=== PATIENT | female | born 1960 | race Caucasian/White ===

== ENCOUNTER → 2023-08-17 07:05 | Outpatient (CLI) | payer BC, SELFPAY ==
[2023-08-17 08:49] LABS: BUN Creatinine Ratio 22.9 (6-22); Blood Urea Nitrogen 16 mg/dL (7-17); Calcium 9.1 mg/dL (8.4-10.2); Carbon Dioxide 24 mmol/L (22-32); Chloride 108 mmol/L (98-107); Cholesterol 229 mg/dL (140-199); Estimated Glomerular Filt Rate > 60 mL/min (>60); Glucose 104 mg/dL (80-110); HDL Cholesterol 79 mg/dL (40-60); HEMOLYSIS < 15 (0-50); LDL Cholesterol Calculated 135 mg/dL (<100); Potassium 4.4 mmol/L (3.4-5.1); Sodium 137 mmol/L (137-145); Triglycerides 73 mg/dL (35-150)
[2023-08-17 08:58] LABS: Free T3, Triiodothyronine Free 4.06 pg/mL (2.77-5.27); Free T4, Direct Thyroxine 0.92 ng/dL (0.78-2.19)
[2023-08-17 09:12] LABS: Thyroid Stimulating Hormone 4.65 uIU/mL (0.47-4.68)
[2023-08-18 07:36] LABS: Thyroid Peroxidase Antibodies 143 IU/mL (0-34)
== END ==
LOC: LAB 07:07
PROVIDERS: Referring Provider Naturopath; Visit Provider Naturopath
DX: Z00.00 Encounter for general adult medical examination without abnormal findings (principal); E03.9 Hypothyroidism, unspecified
CPT/HCPCS: 36415; 80048; 80061; 84439; 84443; 84481; 86376

== ENCOUNTER → 2024-05-10 11:13 | Outpatient (CLI) | payer MEDICARE, SELFPAY ==
--- NOTE | 2024-05-10 11:15 | DI.RAD.S_ITS ---
PROCEDURE: XR DEXA AXIAL SKELETON INDICATIONS: OSTEOPOROSIS SCREENING COMPARISON: [facility], CR, DEXA COMPLETE, 01/12/2021, 8:25. FINDINGS: Lumbar Spine: Bone mineral density 0.89 g/cm2, T score -1.4, previously -1.7. Left Hip: Bone mineral density 0.79 g/cm2, T score -1.2, previously -0.9. Left Femoral Neck: Bone mineral density 0.57 g/cm2, T score -2.5, same as prior. Right Hip: Bone mineral density 0.78 g/cm2, T score -1.3, previously -1.2. Right Femoral Neck: Bone mineral density 0.57 g/cm2, T score -2.5, same as prior. Fracture Risk Calculation (when applicable): 10-year fracture risk of a major osteoporotic fracture 12 percent and of a hip fracture 2.5 percent. (T score greater or equal to -1.0 to: NORMAL) (T score from -1.1 to -2.4: OSTEOPENIA) (T score less than or equal to -2.5: OSTEOPOROSIS) IMPRESSION: Osteoporosis with increased fracture risk. Follow-up guidelines as follows: Osteoporosis: Consider a repeat DEXA and Vertebral Fracture Assessment (VFA) exam in 2 years or sooner if medically necessary, to reassess this patient's status. Osteopenia: Consider a repeat DEXA in 2-3 years to reassess this patient's status, or if there is a new clinical indication. Normal: Consider a repeat DEXA in 5 years or sooner, or if there is a new clinical indication. All treatment decisions require clinical judgment and consideration of individual patient factors, including patient preferences, comorbidities, previous drug use, risk factors not captured in the FRAX model (e.g., frailty, falls, vitamin D deficiency, increased bone turnover, interval significant decline in bone density ) and possible under- or over-estimation of fracture risk by FRAX. In addition, the NOF Guide recommends that FDA-approved medical therapies be considered in postmenopausal women and men age >= 50 years with a: * Hip or vertebral (clinical or morphometric) fracture * T-score of <=-2.5 at the spine or hip * Ten-year fracture probability by FRAX of >= 3% for hip fracture or >=20% for major osteoporotic fracture. People with diagnosed cases of osteoporosis or at high risk for fracture should have regular bone mineral density tests. For patients eligible for Medicare, routine testing is allowed once every 2 years. The testing frequency can be increased to one year for patients who have rapidly progressing disease, those who are receiving or discontinuing medical therapy to restore bone mass, or have additional risk factors. Dictated by: Zion Cameron M.D. on 05/10/2024 at 15:19 Approved by: Zion Cameron M.D. on 05/10/2024 at 15:21
== END ==
PROVIDERS: PCP Registered Nurse; Referring Provider Registered Nurse; Visit Provider Registered Nurse
DX: M81.0 Age-related osteoporosis without current pathological fracture (principal)
CPT/HCPCS: 77080

== ENCOUNTER → 2024-08-14 16:05 | Outpatient (CLI) | payer MEDICARE, SELFPAY ==
--- NOTE | 2024-08-14 16:08 | DI.RAD.S_ITS ---
PROCEDURE: XR FOOT LT MIN 3V INDICATIONS: Unspecified injury of left foot, initial encounter TECHNIQUE: 3 views of the foot were acquired. COMPARISON: None. FINDINGS: Bones: No fractures or dislocations. No suspicious bony lesions. Valgus angulation about the 1st metatarsophalangeal joint measures approximately 33?. Soft tissues: No tibiotalar joint effusion. Achilles tendon appears normal. IMPRESSION: No evidence of acute osseous abnormality. Moderate degree hallux valgus. Dictated by: Salazar Cobb M.D. on 08/14/2024 at 19:36 Approved by: Salazar Cobb M.D. on 08/14/2024 at 19:39
== END ==
PROVIDERS: PCP Registered Nurse; Referring Provider Registered Nurse; Visit Provider Registered Nurse
DX: S99.922A Unspecified injury of left foot, initial encounter (principal); M20.12 Hallux valgus (acquired), left foot; X58.XXXA Exposure to other specified factors, initial encounter
CPT/HCPCS: 73630

== ENCOUNTER → 2024-09-01 10:13 | Outpatient (CLI) | payer MEDICARE, SELFPAY ==
--- NOTE | 2024-09-01 10:15 | DI.MG.S_ITS ---
MM screening mammo BI: 09/01/2024. BI-RADS: 1 CLINICAL: 64-year old female for bilateral screening mammogram. Tyrer-Cuzick lifetime risk of 4.4%. No personal or first-degree family history of breast cancer. PRIOR EXAMS 07/21/2020. MAMMOGRAPHY TECHNIQUE: 2D and 3D (tomosynthesis) digital mammographic views obtained, with additional images as needed for full coverage. Current study was also evaluated with a Computer Aided Detection (CAD) system. DENSITY B. There are scattered areas of fibroglandular density. MAMMOGRAPHY FINDINGS Bilateral: No suspicious mass, asymmetry, microcalcification, or other abnormality seen. IMPRESSION: * No evidence of malignancy. RECOMMENDATIONS Bilateral * Annual screening mammography. OVERALL ASSESSMENT CATEGORY BI-RADS-1: Negative. The [employer] recommends annual screening mammography beginning at age 40 for women with average risk of breast cancer. ELECTRONICALLY SIGNED: Liya Poon M.D. on 09/03/2024 at 06:17:15 PM PT Interpreting Station ID: [id number]
== END ==
PROVIDERS: PCP Registered Nurse; Referring Provider Registered Nurse; Visit Provider Registered Nurse
DX: Z12.31 Encounter for screening mammogram for malignant neoplasm of breast (principal)
CPT/HCPCS: 77063; 77067